=== PATIENT | male | born 1940 | race Caucasian/White ===

== ENCOUNTER 2018-08-30 18:10 | Inpatient (IN) | payer OTHER ==
[~2018-08-30] VITALS: Ht 157.5 cm; Wt 86.2 kg
[~2018-08-30 18:10] MED LIST: ACT30 PO; FLO4 PO; GLIPIZIDE5 MG PO; GOOD SENSE ASP325 MG PO; GOOD SENSE ASPI81 M3 PO; LISINOPRIL10 MG PO; NORCO1 TA2 PO; OMEPRAZOLE DR20 M1 PO; SIMVASTATIN10 M1 PO; SIMVASTATIN40 M1 PO
[2018-08-30 18:12] VITALS: Ht 157.5 cm; Wt 86.2 kg
[2018-08-30 18:38] LABS: BASOPHIL % 0.4 % (0-2); PLATELET COUNT 220 x10^3mcL (130-400)
[2018-08-30 18:44] LABS: RED CELL DISTRIBUTION WIDTH 14.6 % (11.5-14.5)
[2018-08-30 18:46] LABS: CARBON DIOXIDE 26.7 mmol/L (21-32); CHLORIDE SERUM 106 mmol/L (98-107); CREATININE SERUM 2.8 mg/dL (0.7-1.3); GLUCOSE SERUM 110 mg/dL (74-106); POTASSIUM SERUM 5.1 mmol/L (3.5-5.1); SODIUM SERUM 141 mmol/L (136-145)
[2018-08-30 23:14] VITALS: BP 165/57
[2018-08-31 05:45] VITALS: BP 152/46
[2018-08-31 07:27] LABS: BASOPHIL % 0.3 % (0-2); PLATELET COUNT 194 x10^3mcL (130-400); RED CELL DISTRIBUTION WIDTH 13.5 % (11.5-14.5)
[2018-08-31 07:29] LABS: ALKALINE PHOSPHATASE 63 U/L (46-116); ALT/SGPT 20 U/L (16-63); AST/SGOT 24 U/L (15-37); BILIRUBIN TOTAL 0.2 mg/dL (0.20-1.00); CALCIUM 8.6 mg/dL (8.5-10.1); CARBON DIOXIDE 22.9 mmol/L (21-32); CHLORIDE SERUM 106 mmol/L (98-107); CREATININE SERUM 2.4 mg/dL (0.7-1.3); GLUCOSE SERUM 116 mg/dL (74-106); POTASSIUM SERUM 4.3 mmol/L (3.5-5.1); SODIUM SERUM 139 mmol/L (136-145); T4(THYROXINE) 7.5 ug/dL (4.7-13.3); TOTAL PROTEIN, SERUM 6.4 g/dL (6.4-8.2)
[2018-08-31 07:30] LABS: ALBUMIN 3.1 g/dL (3.4-5.0)
[2018-08-31 10:05] LABS: ERYTHROCYTE SED RATE 42 mm/hr (0-20)
[2018-08-31 10:13] VITALS: BP 148/95
[2018-08-31 12:29] VITALS: BP 137/40
[2018-08-31 13:14] VITALS: BP 137/40
[2018-08-31 16:22] VITALS: BP 140/49
[2018-08-31 21:24] VITALS: BP 126/48
[2018-09-01 01:10] VITALS: BP 116/31
[2018-09-01 05:40] VITALS: BP 116/42
[2018-09-01 07:49] LABS: RAPID PLASMA REAGIN Non Reactive (Non Reactive)
[2018-09-01 07:53] LABS: BASOPHIL % 0.3 % (0-2); PLATELET COUNT 155 x10^3mcL (130-400); RED CELL DISTRIBUTION WIDTH 14.5 % (11.5-14.5)
[2018-09-01 09:19] LABS: RHEUMATOID ARTHRITIS FACTOR <10.0 IU/mL (0.0-13.9)
[2018-09-01 09:56] VITALS: BP 126/41
[2018-09-01 13:31] VITALS: BP 120/40
[2018-09-01 16:08] VITALS: BP 134/40
[2018-09-01 21:01] VITALS: BP 139/49
[2018-09-02 01:22] VITALS: BP 135/43
[2018-09-02 06:14] VITALS: BP 113/44
[2018-09-02 09:08] VITALS: BP 124/57
[2018-09-02 12:43] VITALS: BP 123/45
[2018-09-02 17:32] VITALS: BP 123/45
== END 2018-09-02 19:41 | disposition home or self-care (01) | DRG 312 ==
LOC: ED 18:10 → DU 20:52
PROVIDERS: Emergency Medicine; Internal Medicine
DX: R55 Syncope and collapse (principal); N17.0 Acute kidney failure with tubular necrosis; R26.81 Unsteadiness on feet; S50.311A Abrasion of right elbow, initial encounter; E11.22 Type 2 diabetes mellitus with diabetic chronic kidney disease; I12.9 Hypertensive chronic kidney disease with stage 1 through stage 4 chronic kidney disease, or unspecified chronic kidney disease; N18.3 Chronic kidney disease, stage 3 (moderate); M19.90 Unspecified osteoarthritis, unspecified site; Z79.82 Long term (current) use of aspirin; Z79.84 Long term (current) use of oral hypoglycemic drugs; W18.39XA Other fall on same level, initial encounter; Y93.89 Activity, other specified; Y92.013 Bedroom of single-family (private) house as the place of occurrence of the external cause
CPT/HCPCS: 82962; 86431; 97110-GP; 97116-GP; J2270; J7030; J7620; Q0092

== ENCOUNTER 2020-09-05 15:57 | Emergency (ER) | payer OTHER ==
[~2020-09-05] VITALS: Ht 157.5 cm; Wt 79.4 kg
[2020-09-05 19:53] VITALS: Ht 157.5 cm; Wt 79.4 kg
[2020-09-05 20:49] LABS: BASOPHIL % 0.5 % (0.2-1.5); PLATELET COUNT 235 x10^3mcL (152-348); RED CELL DISTRIBUTION WIDTH 13.9 % (12.1-16.2)
[2020-09-05 21:01] LABS: CALCIUM 9.3 mg/dL (8.5-10.1); CARBON DIOXIDE 28.3 mmol/L (21-32); CHLORIDE SERUM 102 mmol/L (98-107); CREATININE SERUM 2.4 mg/dL (0.7-1.3); GLUCOSE SERUM 150 mg/dL (74-106); POTASSIUM SERUM 4.4 mmol/L (3.5-5.1); SODIUM SERUM 141 mmol/L (136-145)
[2020-09-05 21:06] LABS: ALBUMIN 3.8 g/dL (3.4-5.0); ALKALINE PHOSPHATASE 93 U/L (46-116); ALT/SGPT 23 U/L (16-63); AST/SGOT 17 U/L (15-37); BILIRUBIN TOTAL 0.28 mg/dL (0.20-1.00); TOTAL PROTEIN, SERUM 7.9 g/dL (6.4-8.2)
[2020-09-05 22:08] VITALS: BP 158/80
== END 2020-09-05 22:08 | disposition home or self-care (01) ==
LOC: ED 15:57
PROVIDERS: Emergency Medicine
DX: D64.9 Anemia, unspecified (principal); J45.909 Unspecified asthma, uncomplicated; I10 Essential (primary) hypertension; E11.9 Type 2 diabetes mellitus without complications; Z88.8 Allergy status to other drugs, medicaments and biological substances